=== PATIENT | male | born 1990 | race Hispanic/Latino ===

== ENCOUNTER → 2024-11-12 | Day surgery (SDC) | payer OTHER ==
[~2024-11-12] MED LIST: D3-5000125 MCG; FENTANYL CITRATE/PF 100MCG/2 ML INJ ONE; FISH OIL 1,0001 EAC7; LIDOCAINE HCL 2% LOCAL INJ 5 ML SDV VIAL INJ ONE; METAMUCIL FIBE3.4 GM PO; PROPOFOL IV EMULSION 10 MG/ML 20 ML VIAL ONE; RESTORA CAPSUL1 EACH; SUCCINYLCHOLINE CHLORIDE 20 MG/ML 10ML VIAL ONE; VITAMIN B121000 MCG; VITAMIN C500 MG PO; ZINC; [UNRECOGNIZED DRUG - OTHER]
[2024-11-12] MEDS: LACTATED RINGER'S 1,000 ML ONE (09:25)
[2024-11-12 10:18] VITALS: TEMP 97.3
[2024-11-12 10:40] VITALS: BP 109/71; PULSE 75; RESP 18; O2SAT 99
== END | disposition home or self-care (01) ==
LOC: OR 09:07
PROVIDERS: ATTEND Internal Medicine Gastroenterology
DX: K29.70 Gastritis, unspecified, without bleeding (principal); K22.10 Ulcer of esophagus without bleeding; K31.89 Other diseases of stomach and duodenum; D72.820 Lymphocytosis (symptomatic); K44.9 Diaphragmatic hernia without obstruction or gangrene; K21.9 Gastro-esophageal reflux disease without esophagitis; G47.33 Obstructive sleep apnea (adult) (pediatric); E78.5 Hyperlipidemia, unspecified; Z71.89 Other specified counseling; E66.9 Obesity, unspecified; Z68.31 Body mass index [BMI] 31.0-31.9, adult; Z71.3 Dietary counseling and surveillance
CPT/HCPCS: 43239; J2003; J2470; J2704; J3010; J7121; J0330